=== PATIENT | female | born 1970 | race Two or more races ===

== ENCOUNTER 2023-04-26 06:24 | Inpatient (IN) | payer MEDICAID, OTHER ==
[~2023-04-26] VITALS: Ht 157.5 cm; Wt 132.9 kg
[2023-04-26 07:14] VITALS: PULSE 103; RESP 20; O2SAT 95
[2023-04-26 07:36] LABS: Basophils # (auto) 0.1 10 ^3/uL (0-0.2); Basophils % (auto) 0.7 % (0.0-2.0); Eosinophils # (auto) 0.2 10 ^3/uL (0-0.8); Hematocrit 44.3 % (36.0-46.0); Hemoglobin 14.4 g/dL (12.2-16.2); Lymphocytes # (auto) 2.9 10 ^3/uL (0.4-5.4); Mean Corpuscular Hgb Conc. 32.6 g/dL (32.0-36.0); Mean Corpuscular Volume 98.3 fL (80.0-100.0); Monocytes # (auto) 0.7 10 ^3/uL (0-1.3); Monocytes % (auto) 6.6 % (0.0-12.0); Neutrophils # (auto) 7.2 10 ^3/uL (1.6-8.6); Neutrophils % (auto) 64.7 % (37.0-80.0); Nucleated Red Blood Cells % 0.1 %; Red Blood Cells 4.51 10^6/uL (4.0-5.20); Red Cell Distribution Width 14.4 % (11.8-14.3); White Blood Cell 11.2 10^3/uL (4.4-10.8)
[2023-04-26 07:40] LABS: Alanine Aminotransferase 20 U/L (7-40); Albumin 4.3 g/dL (3.2-4.8); Alkaline Phosphatase 136 U/L (46-116); Anion Gap 7 (5-15); Aspartate Aminotransferase 18 U/L (13-40); BUN/Creatinine Ratio 12.1 (10.0-20.0); Blood Urea Nitrogen 8 mg/dL (9-23); Calcium 8.9 mg/dL (8.7-10.4); Carbon Dioxide 24 mmol/L (20-30); Chloride 107 mmol/L (98-107); Glucose 165 mg/dL (74-106); Magnesium 1.9 mg/dL (1.6-2.6); Sodium 138 mmol/L (136-145)
[2023-04-26 07:41] LABS: Bilirubin, Total 1.1 mg/dL (0.2-1.0); Total Protein 7.1 g/dL (5.7-8.2)
[2023-04-26 07:42] VITALS: PULSE 101; RESP 18; O2SAT 95
[2023-04-26 07:56] LABS: INR 1.04 (0.9-1.15); Partial Thromboplastin Time 33.8 SEC (24.5-34.5); Prothrombin Time 10.9 sec (9.3-11.8)
[2023-04-26] MEDS ORDERED: ASPirin 325 MG TAB PO ONE (08:00)
[2023-04-26 08:21] LABS: Triglycerides 108 mg/dL (< 150)
[2023-04-26 08:22] LABS: LDL Cholesterol 121 mg/dL (< 100)
[2023-04-26 08:23] LABS: Cholesterol 147 mg/dL (< 200); HDL Cholesterol 25 mg/dL (40-59)
[2023-04-26 08:30] VITALS: PULSE 97; RESP 20; O2SAT 97
[2023-04-26] MEDS ORDERED: IOHEXOL 350 MG/ML 100ML IJ ONE (08:30)
[2023-04-26] MEDS ORDERED: HEPARIN SODIUM (PORCINE) 5000 UNITS/ML 1ML VIAL IV ONE (08:45)
[2023-04-26] MEDS: HEPARIN DRIP/D5W 100UNITS/ML 250 ML IV SCH ×3 (10:03→18:04)
[2023-04-26] MEDS ORDERED: MORPHINE SULFATE INJ 2 MG/ml SYRG IV PRN ×2 (10:15→13:15)
[2023-04-26] MEDS ORDERED: NITROGLYCERIN 0.4 MG SL TAB SL PRN (13:15)
[2023-04-26] MEDS ORDERED: ALBUTEROL SULF 2.5 MG/0.5ML(0.5%) NEB SOLN NEB PRN (13:15)
[2023-04-26] MEDS ORDERED: ONDANSETRON HCL 4 MG/2 ML VIAL IV PRN (13:15)
[2023-04-26] MEDS ORDERED: ONDANSETRON HCL 4 MG/2 ML VIAL IV ONE (14:00)
[2023-04-26 14:46] LABS: Triglycerides 127 mg/dL (< 150)
[2023-04-26 14:47] LABS: Cholesterol 142 mg/dL (< 200); LDL Cholesterol 118 mg/dL (< 100)
[2023-04-26 14:48] LABS: HDL Cholesterol 24 mg/dL (40-59)
[2023-04-26] MEDS: SODIUM CHLOR 0.9% PF (SALINE LOCK) 10ML VIAL/SYR IV SCH ×2 (15:02→21:41)
[2023-04-26 19:46] VITALS: PULSE 100; RESP 23; O2SAT 94
[2023-04-26 20:33] VITALS: BP 137/77; PULSE 100; RESP 20; TEMP 98.3; O2SAT 93
[2023-04-26] MEDS: FAMOTIDINE 20 MG TAB PO SCH (21:41)
[2023-04-26 23:00] VITALS: O2SAT 94
[2023-04-27] VITALS (10 sets, daily range): BP systolic 107–144; BP diastolic 52–105; PULSE 80–109; RESP 16–20; TEMP 36.6; O2SAT 92–98
[2023-04-27] MEDS ORDERED: HEPARIN SODIUM (PORCINE) 5000 UNITS/ML 1ML VIAL IV ONE (01:00)
[2023-04-27] MEDS: HEPARIN DRIP/D5W 100UNITS/ML 250 ML IV SCH (01:13)
[2023-04-27 02:45] LABS: Amphetamine Screen, Urine Pos (NEGATIVE)
[2023-04-27 02:46] LABS: Barbiturate Scree,Urine Neg (NEGATIVE); Benzodiazephine Screen, Urine Neg (NEGATIVE); Cannabinoid Screen, Urine Neg (NEGATIVE); Cocaine Screen, Urine Neg (NEGATIVE); Phencyclidine Screen, Urine Neg (NEGATIVE)
[2023-04-27 02:51] LABS: Opiate Scree,Urine Neg (NEGATIVE)
[2023-04-27] MEDS: SODIUM CHLOR 0.9% PF (SALINE LOCK) 10ML VIAL/SYR IV SCH ×3 (06:00→21:45)
[2023-04-27 06:52] LABS: Basophils # (auto) 0 10 ^3/uL (0-0.2); Basophils % (auto) 0.2 % (0.0-2.0); Eosinophils # (auto) 0.3 10 ^3/uL (0-0.8); Eosinophils % (auto) 2.9 % (0.0-7.0); Hematocrit 41.5 % (36.0-46.0); Hemoglobin 13.4 g/dL (12.2-16.2); Lymphocytes # (auto) 2.8 10 ^3/uL (0.4-5.4); Lymphocytes % (auto) 27.2 % (10.0-50.0); Mean Corpuscular Hemoglobin 32.1 pg (28.0-32.0); Mean Corpuscular Hgb Conc. 32.3 g/dL (32.0-36.0); Mean Corpuscular Volume 99.6 fL (80.0-100.0); Monocytes # (auto) 0.7 10 ^3/uL (0-1.3); Monocytes % (auto) 6.7 % (0.0-12.0); Neutrophils # (auto) 6.4 10 ^3/uL (1.6-8.6); Nucleated Red Blood Cells % 0.2 %; Red Blood Cells 4.17 10^6/uL (4.0-5.20); Red Cell Distribution Width 14.5 % (11.8-14.3); White Blood Cell 10.2 10^3/uL (4.4-10.8)
[2023-04-27 07:25] LABS: INR 1.04 (0.9-1.15); Partial Thromboplastin Time 41.9 SEC (24.5-34.5); Prothrombin Time 10.9 sec (9.3-11.8)
[2023-04-27 07:55] LABS: Anion Gap 9 (5-15); BUN/Creatinine Ratio 12.1 (10.0-20.0); Blood Urea Nitrogen 8 mg/dL (9-23); Carbon Dioxide 25 mmol/L (20-30); Chloride 106 mmol/L (98-107); Glucose 212 mg/dL (74-106); Potassium 4.2 mmol/L (3.5-5.1); Sodium 140 mmol/L (136-145)
[2023-04-27] MEDS ORDERED: HEPARIN DRIP/D5W 100UNITS/ML 250 ML IV SCH ×2 (08:30→15:45)
[2023-04-27] MEDS: FAMOTIDINE 20 MG TAB PO SCH ×2 (09:33→21:44)
[2023-04-27 15:18] LABS: INR 1.03 (0.9-1.15); Partial Thromboplastin Time 46.3 SEC (24.5-34.5); Prothrombin Time 10.8 sec (9.3-11.8)
[2023-04-27] MEDS ORDERED: APIX5TAB PO (18:23)
[2023-04-27 22:11] LABS: INR 1.03 (0.9-1.15); Partial Thromboplastin Time 57.6 SEC (24.5-34.5); Prothrombin Time 10.8 sec (9.3-11.8)
[2023-04-28] VITALS (8 sets, daily range): BP systolic 122–157; BP diastolic 64–75; PULSE 85–107; RESP 17–20; TEMP 97.9–100; O2SAT 92–96
[2023-04-28 06:46] LABS: Basophils # (auto) 0.1 10 ^3/uL (0-0.2); Eosinophils # (auto) 0.2 10 ^3/uL (0-0.8); Eosinophils % (auto) 2.2 % (0.0-7.0); Hematocrit 41.7 % (36.0-46.0); Hemoglobin 13.8 g/dL (12.2-16.2); Lymphocytes # (auto) 2.3 10 ^3/uL (0.4-5.4); Lymphocytes % (auto) 23.6 % (10.0-50.0); Mean Corpuscular Hemoglobin 32.6 pg (28.0-32.0); Mean Corpuscular Hgb Conc. 33.1 g/dL (32.0-36.0); Mean Corpuscular Volume 98.6 fL (80.0-100.0); Monocytes # (auto) 0.7 10 ^3/uL (0-1.3); Monocytes % (auto) 7.6 % (0.0-12.0); Neutrophils # (auto) 6.3 10 ^3/uL (1.6-8.6); Neutrophils % (auto) 65.6 % (37.0-80.0); Nucleated Red Blood Cells % 0.1 %; Red Blood Cells 4.23 10^6/uL (4.0-5.20); Red Cell Distribution Width 13.9 % (11.8-14.3); White Blood Cell 9.7 10^3/uL (4.4-10.8)
[2023-04-28] MEDS: SODIUM CHLOR 0.9% PF (SALINE LOCK) 10ML VIAL/SYR IV SCH ×2 (06:57→14:00)
[2023-04-28] MEDS: FAMOTIDINE 20 MG TAB PO SCH (08:33)
[2023-04-28] MEDS ORDERED: APIXABAN 5 MG TAB PO SCH (10:00)
[2023-05-05] MEDS ORDERED: APIXABAN 5 MG TAB PO SCH (10:00)
== END 2023-04-28 18:50 | disposition home or self-care (01) | DRG 133 ==
LOC: ER 06:24 → EDBD 06:24 → TELE 13:05 → TELE-WESTW 23:03
PROVIDERS: ADMIT Hospitalist; ATTEND Hospitalist
DX: J96.01 Acute respiratory failure with hypoxia (principal); I26.99 Other pulmonary embolism without acute cor pulmonale; Z68.43 Body mass index [BMI] 50.0-59.9, adult; E66.01 Morbid (severe) obesity due to excess calories; D72.829 Elevated white blood cell count, unspecified; F15.90 Other stimulant use, unspecified, uncomplicated; F17.210 Nicotine dependence, cigarettes, uncomplicated; I10 Essential (primary) hypertension
CPT/HCPCS: 36415; 70450; 71045; 71275; 80048; 80053; 80061; 80307; 81241; 83036; 83735; 83880; 84484; 84702; 85025; 85610; 85730; 93005; 93306; 93970; 96365; 96366; 96375; 99291; G0378